=== PATIENT | female | born 1985 | race Two or more races ===

== ENCOUNTER 2022-12-14 10:33 | Emergency (ER) | payer OTHER ==
[~2022-12-14] VITALS: Ht 165.1 cm; Wt 70.3 kg
[2022-12-14] MEDS ORDERED: LEVO-T25 MCG (11:02)
== END 2022-12-14 13:46 | disposition left against medical advice (07) ==
LOC: ER 10:33
DX: S93.402A Sprain of unspecified ligament of left ankle, initial encounter (principal); Z91.018 Allergy to other foods; X50.9XXA Other and unspecified overexertion or strenuous movements or postures, initial encounter; Y93.89 Activity, other specified; Y92.9 Unspecified place or not applicable